=== PATIENT | female | born 1995 | race Caucasian/White ===

== ENCOUNTER 2019-01-22 16:36 | Emergency (ER) | payer OTHER ==
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
[2019-01-22] MEDS ORDERED: AZITHROMYCIN 250 MG TAB PO ONE (20:50)
[2019-01-22] MEDS ORDERED: ONDANSETRON DISINTEGRATING 4 MG TAB PO ONE (20:50)
[2019-01-22 21:59] VITALS: BP 134/82
== END 2019-01-22 21:54 | disposition home or self-care (01) ==
LOC: EEVIPCON 16:36
DX: Z04.41 Encounter for examination and observation following alleged adult rape (principal); J02.9 Acute pharyngitis, unspecified